=== PATIENT | female | born 1995 | race African-American/Black ===

== ENCOUNTER 2018-07-14 03:00 | Emergency (ER) | payer OTHER ==
[~2018-07-14] VITALS: Ht 160 cm; Wt 50.0 kg
[2018-07-14] MEDS ORDERED: IBUPROFEN 600MG TABLET PO ONE (08:45)
[2018-07-14 09:33] LABS: CLARITY URINE CLEAR (CLEAR); COLOR URINE YELLOW (YELLOW); KETONES URINE NEGATIVE (NEGATIVE); LEUKOCYTE ESTERASE URINE NEGATIVE (NEGATIVE); NITRITE URINE NEGATIVE (NEGATIVE); OCCULT BLOOD URINE NEGATIVE (NEGATIVE); PROTEIN URINE NEGATIVE (NEGATIVE); SPECIFIC GRAVITY URINE 1.028 (1.005-1.030); UROBILINOGEN URINE 0.2 E.U./dL (0.2-1.0)
[2018-07-14 09:56] VITALS: BP 115/72
== END 2018-07-14 10:03 | disposition home or self-care (01) ==
LOC: ER 03:00
DX: M54.5 Low back pain (principal); G89.29 Other chronic pain; F12.10 Cannabis abuse, uncomplicated
CPT/HCPCS: 81025; 99283